=== PATIENT | female | born 1970 | race Caucasian/White ===

== ENCOUNTER 2019-05-06 13:23 | Emergency (ER) | payer OTHER, MEDICAID ==
[~2019-05-06] VITALS: Ht 162.6 cm; Wt 73.9 kg
[2019-05-06 13:30] VITALS: BP_SYST 135
[2019-05-06] MEDS ORDERED: ASPIRIN 325 MG TABLET PO ONE (13:45)
[2019-05-06 14:14] LABS: BASOPHILS # (AUTO) 0.1 K/uL (0.0-0.2); BASOPHILS % (AUTO) 1.1 % (0.0-2.0); EOSINOPHILS # (AUTO) 0.2 K/uL (0.0-0.4); EOSINOPHILS % (AUTO) 2.1 % (0.0-4.0); HEMATOCRIT 48.5 % (36-48); HEMOGLOBIN 16.2 g/dL (12.0-16.0); LYMPHOCYTES # (AUTO) 2.1 K/uL (1.0-5.5); LYMPHOCYTES % (AUTO) 22.6 % (20.5-51.5); MEAN CORPUSCULAR HEMOGLOBIN 31 pg (27-31); MEAN CORPUSCULAR HGB CONC 33 % (32-36); MEAN CORPUSCULAR VOLUME 92 fL (79.0-98.0); MONOCYTES % (AUTO) 11.1 % (1.7-9.3); NEUTROPHILS # (AUTO) 5.8 K/uL (1.8-7.7); NEUTROPHILS % (AUTO) 63.1 % (40.0-70.0); PLATELET COUNT (AUTO) 373 K/uL (130-430); RED BLOOD CELL COUNT(AUTO) 5.27 MIL/uL (4.2-6.2); RED CELL DISTRIBUTION WIDTH 12.9 % (9.0-15.0); WHITE BLOOD COUNT (AUTO) 9.2 K/uL (4.8-10.8)
[2019-05-06 14:30] LABS: CALCIUM 9.1 mg/dL (8.4-11.0); CREATININE 0.74 mg/dL (0.55-1.30); POTASSIUM 3.1 mmol/L (3.5-5.1)
[2019-05-06 14:46] LABS: ALBUMIN 4.1 g/dL (3.4-4.8); FREE T4 (FREE THYROXINE) 0.7 ng/dL (0.6-1.6); THYROID STIMULATING HORMONE 1.79 uIu/mL (0.34-4.82); TOTAL BILIRUBIN 0.4 mg/dL (0.0-1.0)
[2019-05-06 15:17] LABS: CKMB RELATIVE INDEX 1.7 (0.0-2.9); CREATINE KINASE MB 5.3 ng/mL (0-3.6)
[2019-05-06] MEDS ORDERED: POTASSIUM CHLORIDE 20 MEQ TAB.PRT.SR PO ONE (16:00)
[2019-05-06 16:17] VITALS: BP_SYST 116
== END 2019-05-06 16:15 | disposition home or self-care (01) ==
LOC: SED 13:23
DX: R00.2 Palpitations (principal); E87.6 Hypokalemia; R07.89 Other chest pain; R03.0 Elevated blood-pressure reading, without diagnosis of hypertension
CPT/HCPCS: 36415; 71045; 80053; 82550-TC; 82553-TC; 84439; 84443-TC; 84479; 84484; 85025; 85379; 93005; 99284